=== PATIENT | male | born 1965 | race Caucasian/White ===

== ENCOUNTER 2017-07-05 12:21 | Emergency (ER) | payer OTHER ==
[~2017-07-05] VITALS: Wt 74.0 kg
--- NOTE | 2017-07-05 14:35 | ERD ---
ER Documentation Chief Complaint Chief Complaint TOOTHACHE, ONSET 10 DAYS HPI 52-year-old male, presents to the emergency department requesting a medical clearance for dental extraction. The patient currently is taking clindamycin, [place] with adequate control of the symptoms. He was unable to obtain a clearance from his primary doctor. Currently the patient denies chest pain, palpitations, shortness of breath. No fever, chills. ROS SYSTEMIC symptoms: no fever, chills, no night sweats, no weight loss EYE symptoms: No blurred vision, no eye discharge OTOLARYNGEAL symptoms: No hearing loss. No ear pain, no sore throat CARDIOVASCULAR symptoms: No chest pain or discomfort, no palpitations. PULMONARY symptoms: No dyspnea, no cough, no wheezing. GASTROINTESTINAL symptoms: No abdominal pain, no nausea, no vomiting, no diarrhea MUSCULOSKELETAL symptoms: No arthralgias, no muscle aches. NEUROLOGY symptoms: No confusion, no syncope, no numbness or tingling. SKIN: No rashes PMhx/Soc Hx Cardiac Disorders: Yes (HTN) Hx Miscellaneous Medical Probl: Yes (DVT) Hx Alcohol Use: No Hx Substance Use: No Hx Tobacco Use: No Physical Exam Vitals Vital Signs Date Time Temp Pulse Resp B/P Pulse Ox O2 Delivery O2 Flow Rate FiO2 07/05/17 12:27 98.4 107 18 170/83 98 Physical Exam Patient is in no acute distress, vital signs stable. Alert and fully oriented. EYES: PERRLA, EOMI, Sclera and conjunctiva appear normal. EARS: Canals clear, tympanic membranes WNL THROAT: Poor dentition, no evidence of periapical abscess.normal oropharynx. NECK: Supple, No lymphadenopathy. Full ROM without pain or tenderness. HEART: RRR, no rubs, murmurs, clicks or gallops. LUNGS: Clear to auscultation. ABDOMEN: Soft, non-tender without masses or hepatosplenomegaly. EXTREMITIES: No edema bilaterally. BACK: Full ROM, no deformity, normal back exam NEURO: Cranial nerves grossly intact, no sensory deficit Procedures/MDM 52-year-old male, presents to the emergency department requesting a medical clearance for a dental procedure. The patient was diagnosed with a dental infection and was started on clindamycin with adequate control of the symptoms, currently the patient is asymptomatic, denies chest pain, shortness of breath, palpitations. Vital signs stable, physical examination unremarkable except for poor dentition. Physical examination and clinical presentation consistent most likely with severe dental disease. During the ED course the patient remained stable, no new complaints. Results and clinical impression discussed with patient who agrees with management. The patient is stable to have a dental procedure, recommendation for antibiotic prophylaxis, hold aspirin 3 days prior to procedure and avoid epinephrine. The patient was instructed to follow up with the primary care provider in the next 48h. If symptoms persist, worsen or new symptoms develop, then patient should return to the ED immediately. Instructions explained and given directly by me to the patient in Chinese with acknowledgment and demonstrated understanding. Disclaimer: Inadvertent spelling and grammatical errors are likely due to EHR/ dictation software use and do not reflect on the overall quality of patient care. Also, please note that the electronic time recorded on this note does not necessarily reflect the actual time of the patient encounter. Departure Diagnosis: Primary Impression: Tooth disease Condition: Stable Additional Instructions: Call your primary care doctor TOMORROW for an appointment during the next 1-2 days. See the doctor sooner or return here if your condition worsens before your appointment time. Thank you very much for allowing us to participate in your care. Your health and safety is our top priority at [facility]. Have prescriptions filled and follow precisely the directions on the label. Follow-up with primary care provider during the next 4 days and bring all the information and medications prescribed. If illness has not improved in 2 days, then make an appointment with primary care provider. If the provider is unavailable, return to the Emergency Department immediately. GARLAND JAY MD Jul 05, 2017 14:35
== END 2017-07-05 15:35 | disposition home or self-care (01) ==
LOC: FTE 12:21
DX: K08.89 Other specified disorders of teeth and supporting structures (principal); I10 Essential (primary) hypertension
CPT/HCPCS: 99282

== ENCOUNTER 2018-10-21 12:51 | Emergency (ER) | payer SELFPAY ==
[~2018-10-21] VITALS: Ht 160 cm; Wt 75.9 kg
[2018-10-21 13:09] VITALS: Ht 160 cm; Wt 75.9 kg
[2018-10-21] MEDS ORDERED: LIDOCAINE 1% (MDV) 10 ML INJ INJ STA (16:09)
[2018-10-21] MEDS ORDERED: NICARDipine HCL 30 MG CAPSULE PO ONE (16:30)
[2018-10-21] MEDS ORDERED: METOPROLOL 25 MG TAB PO ONE (16:30)
[2018-10-21] MEDS ORDERED: LIDOCAINE 1% (MPF) 5 ML VIAL INJ ONE (17:00)
[2018-10-21] MEDS ORDERED: AMLO5TAB4 PO (17:15)
[2018-10-21] MEDS ORDERED: AMLO-147 PO (18:07)
[2018-10-21] MEDS ORDERED: CLIN300C10 PO (18:07)
[2018-10-21 18:10] VITALS: BP 147/104; PULSE 90; RESP 20
--- NOTE | 2018-10-21 18:15 | ERD ---
ER Documentation Chief Complaint Chief Complaint abscess on back had sx before - HPI 53-year-old male with a history of hypertension presenting with a cyst on his back that is leaking purulent fluid per the patient. He has had this for the past 2 days. He had surgery in the same location for a cyst a few weeks ago. He is currently not on any blood pressure medications as he does not have a primary care doctor. He denies any fevers or chills. No chest pain, shortness of breath, headache, dizziness, nausea or vomiting. ROS All systems reviewed and are negative except as per history of present illness. Medications Home Meds Active Scripts Amlodipine Besylate* (Amlodipine Besylate*) 10 Mg Tablet, 10 MG PO DAILY, #30 TAB Prov:SHELLEY CASTRO MD 10/21/18 Clindamycin Hcl* (Clindamycin Hcl*) 300 Mg Capsule, 300 MG PO TID for 7 Days, CAP Prov:SHELLEY CASTRO MD 10/21/18 Reported Medications Amlodipine Besylate* (Norvasc*) 5 Mg Tablet, 5 MG PO DAILY, TAB 10/21/18 Allergies Allergies: Coded Allergies: Penicillins (Verified Allergy, Unknown, RASH HIVES, 10/21/18) PMhx/Soc History of Surgery: No Anesthesia Reaction: No Hx Neurological Disorder: No Hx Respiratory Disorders: No Hx Cardiac Disorders: Yes (HTN) Hx Psychiatric Problems: No Hx Miscellaneous Medical Probl: No Hx Alcohol Use: No Hx Substance Use: No Hx Tobacco Use: No Smoking Status: Never smoker Physical Exam Vitals Vital Signs Date Temp Pulse Resp B/P (MAP) Pulse Ox O2 O2 Flow FiO2 Time Delivery Rate 10/21/18 98.1 98 20 184/125 95 Room Air 17:12 (144) 10/21/18 98.1 107 22 187/130 95 Room Air 16:19 (149) 10/21/18 98.1 109 22 186/124 95 Room Air 15:51 (144) 10/21/18 98.4 98 20 206/113 94 13:09 (144) Physical Exam Const: No acute distress Head: Atraumatic Eyes: Normal Conjunctiva ENT: Normal External Ears, Nose and Mouth. Neck: Full range of motion. No meningismus. Resp: Clear to auscultation bilaterally Cardio: Regular rate and rhythm, no murmurs Abd: Soft, non tender, non distended. Normal bowel sounds Skin: No petechiae or rashes Back: No midline or flank tenderness. There is a large 5 cm x 5 cm cyst on the mid thoracic area with no active discharge. No overlying erythema or tenderness. Ext: No cyanosis, or edema Neur: Awake and alert, normal speech, moving all extremities. Psych: Normal Mood and Affect Result Diagram: 10/21/18 1619 10/21/18 1619 Results 24 hrs Laboratory Tests Test 10/21/18 16:19 White Blood Count 10.0 10^3/ul Red Blood Count 6.08 10^6/ul Hemoglobin 14.3 g/dl Hematocrit 49.1 % Mean Corpuscular Volume 80.8 fl Mean Corpuscular Hemoglobin 23.5 pg Mean Corpuscular Hemoglobin Concent 29.1 g/dl Red Cell Distribution Width 16.2 % Platelet Count 276 10^3/UL Mean Platelet Volume 9.0 fl Immature Granulocytes % 0.400 % Neutrophils % 66.2 % Lymphocytes % 23.7 % Monocytes % 8.5 % Eosinophils % 0.7 % Basophils % 0.5 % Nucleated Red Blood Cells % 0.0 /100WBC Immature Granulocytes # 0.040 10^3/ul Neutrophils # 6.6 10^3/ul Lymphocytes # 2.4 10^3/ul Monocytes # 0.9 10^3/ul Eosinophils # 0.1 10^3/ul Basophils # 0.1 10^3/ul Nucleated Red Blood Cells # 0.0 10^3/ul Sodium Level 142 mmol/L Potassium Level 4.4 mmol/L Chloride Level 100 mmol/L Carbon Dioxide Level 35 mmol/L Anion Gap 7 Blood Urea Nitrogen 16 mg/dl Creatinine 0.38 mg/dl Est Glomerular Filtrat Rate mL/min > 60 mL/min Glucose Level 96 mg/dl Calcium Level 9.1 mg/dl Current Medications Medications Dose Sig/[place] Start Time Status Last (Trade) Ordered Route PRN Stop Time Admin Dose Reason Admin Nicardipine 30 mg ONCE ONCE 10/21/18 DC 10/21/18 HCl PO 16:30 16:24 (Cardene) 10/21/18 16:31 Metoprolol 25 mg ONCE ONCE 10/21/18 DC 10/21/18 Tartrate PO 16:30 16:24 (Lopressor) 10/21/18 16:31 Lidocaine 10 ml ONCE STAT 10/21/18 DC HCl INJ 16:09 (Lidocaine 10/21/18 16:11 1% (Mdv) 10 ml) Lidocaine 10 ml ONCE ONCE 10/21/18 DC (Xylocaine INJ 17:00 1% (Mpf)) 10/21/18 17:01 Procedures/MDM EMERGENT LABS AND DIAGNOSTIC STUDIES: Lab Results above were reviewed and interpreted by me. CBC: no anemia or evidence of infection BMP: No e/o severe acidosis, alkalosis, renal failure, diabetic ketoacidosis Initial Nursing notes reviewed. Previous Medical Records requested via the Electronic Health Record. EMERGENCY DEPARTMENT COURSE / MEDICAL DECISION MAKING: Abscess Incision and Drainage with irrigation by me: Location: Mid back Anesthesia: Local 1% Lidocaine Technique: Irrigated. Disrupted loculations w/ instrumentation Packing: Packing placed Complications: Neurovascularly intact post procedure 48 hour wound check. Scar minimization instructions given. MDM Patient is presenting with a sebaceous cyst with possible infection on his back. Vitals were notable for hypertension but I have a low suspicion for hypertensive emergency. He was treated with oral antihypertensives with improvement of his blood pressure. Bedside aspiration was done with aspiration of thick, purulent and bloody fluid. For this reason, a traditional I&D was done and a large amount of thick purulent substance was removed. I will put the patient on antibiotics for 1 week. I also recommended he start amlodipine 10 mg daily. Follow-up with PCP was recommended The patient was counseled about the risks of hypertension and urged to pursue outpatient monitoring and therapy within a week with their primary care physician. Departure Diagnosis: Primary Impression: Infected sebaceous cyst of skin Additional Impression: Hypertension Hypertension type: unspecified Qualified Codes: I10 - Essential (primary) hypertension Condition: Stable Patient Instructions: Hypertension, Established, Out Of Control, Sebaceous Cyst, Infected (I And D) Additional Instructions: Remove packing in 2 days. You will need to go to your primary care doctor to recheck your blood pressure in 1 week. You will also need a referral to a surgeon for excision of your cyst so this does not happen again. SHELLEY CASTRO MD Oct 21, 2018 18:15
== END 2018-10-21 18:18 | disposition home or self-care (01) ==
LOC: E/R 12:51
DX: L72.3 Sebaceous cyst (principal); I10 Essential (primary) hypertension; L08.9 Local infection of the skin and subcutaneous tissue, unspecified
CPT/HCPCS: 36415; 80048; 85025